=== PATIENT | female | born 1950 | race Caucasian/White ===

== ENCOUNTER 2020-08-25 13:40 | Outpatient (CLI) | payer MEDICARE ==
[~2020-08-25 13:40] MED LIST: Iopamidol-370 76% 500 ML 1 ML ONE
[2020-08-25 13:56] LABS: Estimated GFR-MDRD - POC Greater than 90
--- NOTE | 2020-08-25 14:29 | CT ---
CT ABDOMEN AND PELVIS WITH IV CONTRAST 08/25/2020 CLINICAL INFORMATION: Constipation and right lower quadrant abdominal pain for 8 months. History of prior appendectomy, cho lecystectomy, and hysterectomy. COMPARISON: None. Technique: Multiple contiguous axial CT images are obtained through the abdomen and pelvis with IV contrast. Cor onal reformatted images are provided. FINDINGS: Lower Chest: Minimal linear scar versus atelectasis is present at each lung base. Vessels: Vascular calcifications are seen in the abdominal aorta and involving the iliac arteries. Abdomen: Portal vein:Patent Gallbladder: Surgically absent. Liver: within normal limits. Spleen: within normal limits. Pancreas: within normal limits. Adrenals: within normal limits. Kidneys: Right kidney is rotated. Subcentimeter too small to characterize hypodense lesions are seen in each kidney. Bowel: No dilated loops of small bowel are seen. Few mildly prominent loops of jejunum are seen likel y related to peristalsis. There is no bowel wall thickening appreciated. Small amount retained fecal material seen in the colon. A few colonic diverticula are seen. Appendix: Not visualized. Patient reports history of prior appendectomy. There are no secondary signs to suggest appendicitis. Peritoneum: No ascites or free air; no fluid collection. Mesentery and Retroperitoneum: No enlarged nodes are seen by CT size criteria. Abdominal Wall: within normal limits. Pelvis: Reproductive Organs: No pelvic masses. Bladder: Incompletely distended. Bones: Degenerative changes in the lower lumbar spine with trace anterolisthesis of L3 on L4 related to prominent facet degenerative change. IMPRESSION: No acute findings in the abdomen or pelvis.
== END 2020-08-25 13:41 | disposition home or self-care (01) ==
LOC: BICCT 13:40
PROVIDERS: ATTEND Internal Medicine
DX: R10.31 Right lower quadrant pain (principal)
CPT/HCPCS: 74177; 82565; Q9967

== ENCOUNTER 2020-12-19 12:50 | Outpatient (CLI) | payer MEDICARE | END 2020-12-19 12:51 | disposition home or self-care (01) | LOC: SCSRAD 12:50 | PROVIDERS: ATTEND Student in an Organized Health Care Education/Training Program | DX: M25.552 Pain in left hip (principal) ==

== ENCOUNTER 2025-05-09 14:08 | Outpatient (CLI) | payer MEDICARE | END 2025-05-09 14:09 | disposition home or self-care (01) | LOC: SCSMRI 14:08 | PROVIDERS: ATTEND Family Medicine | DX: K86.89 Other specified diseases of pancreas (principal); K86.2 Cyst of pancreas | CPT/HCPCS: 76376; S8037; 74181 ==

== ENCOUNTER 2025-09-07 06:06 | Emergency (ER) | payer MEDICARE ==
[2025-09-07] MEDS ORDERED: Acetaminophen 500 MG TAB ONE ×2 (06:39→14:21)
[2025-09-07 07:27] LABS: ALT (SGPT) 17 U/L (Less than 34); AST (SGOT) 34 U/L (11-34); Albumin 3.7 g/dL (3.1-4.5); Alkaline Phosphatase 73 U/L (40-110); Anion Gap 18 mmol/L (10-20); BUN (Urea Nitrogen) 19 mg/dL (9.8-20.1); Bilirubin, Total 0.6 mg/dL (0.3-1.2); Calc. Creatinine Clearance 0 mL/min (70-130); Calcium 9.4 mg/dL (7.8-10.44); Carbon Dioxide 22 mmol/L (23-31); Chloride 100 mmol/L (98-107); Globulin 3.5 g/dL (2.4-3.5); Glucose 114 mg/dL (83-110); Lipase 7 U/L (8-78); Magnesium 1.8 mg/dL (1.6-2.6); Potassium 3.6 mmol/L (3.5-5.1); Sodium 136 mmol/L (136-145)
[2025-09-07] MEDS ORDERED: Ondansetron PF 4 MG/2 ML Vial ONE (07:51)
[2025-09-07 08:18] LABS: Bacteria/HPF None Seen HPF (None Seen); CAUTI Indications for Culture Dysuria,urgency,freq; Glucose, Urine (Dipstick) Normal (Negative); Leukocyte Negative Leu/uL (Negative); Protein, Urine (Dipstick) 50 mg/dL (Neg-Trace); RBC/HPF 0-3 HPF (0-3); WBC/HPF 0-3 HPF (0-3)
[2025-09-07 08:19] LABS: Specific Gravity, Urine Greater than 1.050 (1.002-1.036)
[2025-09-07 08:20] LABS: Urine Culture Reflex No No
[2025-09-07 08:37] LABS: #Basophils Less than 0.03 10x3/uL (0.0-0.2); #Eosinophils Less than 0.03 10x3/uL (0.0-0.7); #Monocytes 0.51 10x3/uL (0.11-0.59); #Neutrophils 7.90 10x3/uL (1.40-6.50); %Basophils 0.1 % (0.0-1.0); %Eosinophils 0.0 % (0.0-10.0); %Lymphocytes 3.0 % (21.0-51.0); %Monocytes 5.9 % (0.0-10.0); %Neutrophils 90.8 % (42.0-75.0); Hematocrit 36.6 % (36.0-47.0); Hemoglobin 12.4 g/dL (12.0-16.0); Mean Corpuscular Hemoglobin 31.1 pg (27.0-31.0); Mean Corpuscular Volume 91.7 fL (78.0-98.0); Ovalocytes SLIGHT = 2-5 cells (100X) (0-1/hpf); Plasma Cells 0 % (0-0); Platelet Adequacy Comment Appears Adequate; Platelet Count 174 10x3/uL (130-400); Red Blood Cell (RBC) Count 3.99 mill/uL (4.20-5.40); White Blood Cell (WBC) Count 8.70 10x3/uL (4.8-10.8)
[2025-09-07] MEDS ORDERED: Iopamidol-370 76% 500 ML MDV (1 ML CHARGE) ONE (08:53)
[2025-09-07 22:39] LABS: Campy jejuni + coli by PCR Negative (Negative); STEC Shiga Toxin 1+2 Negative (Negative); Salmonella spp. by PCR Negative (Negative); Shigella spp + EIEC by PCR Negative (Negative)
== END 2025-09-07 14:15 | disposition home or self-care (01) ==
LOC: ERS 06:06
DX: A04.72 Enterocolitis due to Clostridium difficile, not specified as recurrent (principal); I10 Essential (primary) hypertension; E03.9 Hypothyroidism, unspecified; Z79.899 Other long term (current) drug therapy
CPT/HCPCS: 74177; 80053; 81001; 83605; 83690; 83735; 85025; 87040; 87324; 87428; 87449; 87505; 93005; J2405; J3010; Q9967; 96361; 96374; 96375